=== PATIENT | male | born 1980 | race Asian ===

== ENCOUNTER 2020-03-25 00:35 | Emergency (ER) | payer BC, MEDICAID ==
[~2020-03-25] VITALS: Ht 162.6 cm; Wt 83.5 kg
[2020-03-25 00:38] VITALS: BP 140/98
== END 2020-03-25 01:14 | disposition home or self-care (01) ==
LOC: ER 00:37
DX: L50.9 Urticaria, unspecified (principal); Z91.013 Allergy to seafood
CPT/HCPCS: 99282